=== PATIENT | female | born 2005 | race Caucasian/White ===

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

== ENCOUNTER 2025-01-05 18:39 | Emergency (ER) | payer OTHER ==
[~2025-01-05] VITALS: Ht 142.2 cm; Wt 43.2 kg
[2025-01-05 20:40] VITALS: TEMP 98.205296
[2025-01-05 20:54] LABS: HCG,QUAL URINE NEGATIVE (NEGATIVE)
[2025-01-05 20:55] LABS: APPEARANCE,URINE HAZY (CLEAR); GLUCOSE, URINE (UA) NEGATIVE (NEGATIVE); LEUKOCYTE ESTERASE ,URINE MODERATE (NEGATIVE); NITRATE,URINE POSITIVE (NEGATIVE); OCCULT BLOOD,URINE NEGATIVE (NEGATIVE); SPECIFIC GRAVITIY, URINE 1.024 (1.003-1.030)
[2025-01-05 21:14] LABS: SQUAMOUS EPITHELIAL CELL,UR Moderate /LPF (None Seen)
[2025-01-05] MEDS: CEPHALEXIN MONOHYDRATE 500 MG CAPSULE PO ONE (21:20)
[2025-01-05] MEDS: ACETAMINOPHEN/CODEINE 300-30 MG TABLET PO ONE (21:20)
[2025-01-05] MEDS ORDERED: PHEN-674 PO (21:50)
[2025-01-05] MEDS ORDERED: VALA500T42 PO (21:50)
[2025-01-05] MEDS ORDERED: DOXY-354 PO (21:50)
[2025-01-05] MEDS ORDERED: ACET-2080 PO (21:50)
[2025-01-05] MEDS ORDERED: CEPH-558 PO (21:52)
[2025-01-05 22:00] VITALS: BP 101/68; PULSE 98; RESP 16; O2SAT 100
[2025-01-05] MEDS: LIDOCAINE/PF 1% 2 ML VIAL IM ONE (22:05)
[2025-01-05] MEDS: DOXYCYCLINE HYCLATE 100 MG TABLET PO ONE (22:05)
[2025-01-05] MEDS: CefTRIAXone SODIUM 1 GM/VIAL IM ONE (22:06)
== END 2025-01-05 22:15 | disposition home or self-care (01) ==
LOC: EMS 18:51
DX: A60.09 Herpesviral infection of other urogenital tract (principal); N89.8 Other specified noninflammatory disorders of vagina; N39.0 Urinary tract infection, site not specified; F12.90 Cannabis use, unspecified, uncomplicated; Z79.899 Other long term (current) drug therapy
CPT/HCPCS: 99284; 81001; 84703; 87086; 96372; J0696; J3490; 87077